=== PATIENT | female | born 1960 | race Caucasian/White ===

== ENCOUNTER → 2016-07-07 | Outpatient (CLI) | payer OTHER ==
--- NOTE | 2016-07-11 07:04 | MM ---
Reason for exam: screening (asymptomatic). Last mammogram was performed 1 year ago. History: Patient is postmenopausal. Physical Findings: A clinical breast exam by your physician is recommended on an annual basis and results should be correlated with mammographic findings. MG 3D Screening Mammo W/Cad Bilateral CC and MLO view(s) were taken. Prior study comparison: July 06, 2015, bilateral MG 3d screening mammo w/cad. May 15, 2014, bilateral MG screening mammo w CAD. The breast tissue is heterogeneously dense. This may lower the sensitivity of mammography. No significant changes when compared with prior studies. ASSESSMENT: Benign, BI-RAD 2 RECOMMENDATION: Routine screening mammogram of both breasts in 1 year.
== END | disposition home or self-care (01) ==
LOC: RADMAMWWP 13:11
PROVIDERS: ATTEND Family Medicine
DX: Z12.31 Encounter for screening mammogram for malignant neoplasm of breast (principal)
CPT/HCPCS: 77063; G0202

== ENCOUNTER 2016-07-13 08:04 | Day surgery (SDC) | payer OTHER ==
[2016-07-11 09:31] VITALS: BMI 25.7
--- NOTE | 2016-07-13 07:37 | P.GSHP ---
History of Present Illness H&P Date: 07/13/16 CHIEF COMPLAINT: Colon screen HISTORY OF PRESENT ILLNESS: The patient is a 56-year-old female who presents for colon screen. Lower endoscopy was offered for further evaluation and management. PAST MEDICAL HISTORY: Please see list. PAST SURGICAL HISTORY: Please see list. MEDICATIONS: Please see list. ALLERGIES: Please see list. SOCIAL HISTORY: No illicit drug use FAMILY HISTORY: No reports of Crohn disease or ulcerative colitis. REVIEW OF ORGAN SYSTEMS: CONSTITUTIONAL: No reports of fevers or chills. PHYSICAL EXAM: VITAL SIGNS: Stable GENERAL: Well-developed pleasant in no acute distress. HEENT: No scleral icterus. Extraocular movements grossly intact. Moist buccal mucosa. NECK: Supple without lymphadenopathy. CHEST: Unlabored respirations. Equal bilateral excursions. CARDIOVASCULAR: Regular rate and rhythm. Distal 2+ pulses. ABDOMEN: Soft, nontender, nondistended. MUSCULOSKELETAL: No clubbing, cyanosis, or edema. ASSESSMENT: 1. Colon screen. PLAN: 1. Recommend proceeding with a lower endoscopy Past Medical History Past Medical History: No Reported History Additional Past Medical History / Comment(s): Hx of migraine and insomnia. History of Any Multi-Drug Resistant Organisms: None Reported Past Surgical History: No Surgical Hx Reported Additional Past Surgical History / Comment(s): Hx cervical biopsy and 1 wisdom upper tooth removed. Past Anesthesia/Blood Transfusion Reactions: No Reported Reaction Past Psychological History: No Psychological Hx Reported Smoking Status: Never smoker Past Alcohol Use History: None Reported Past Drug Use History: None Reported - Past Family History Mother Family Medical History: Cancer Additional Family Medical History / Comment(s): Bone CA to leg. Medications and Allergies Home Medications Medication Instructions Recorded Confirmed Type Cholecalciferol [Vitamin D3] 2,000 unit PO DAILY 07/11/16 07/11/16 History Naproxen [Naprosyn] 500 mg PO Q12HR PRN 07/11/16 07/11/16 History Nortriptyline [Pamelor] 50 mg PO HS 07/11/16 07/11/16 History Zolpidem [Ambien] 10 mg PO HS PRN 07/11/16 07/11/16 History Allergies Allergy/AdvReac Type Severity Reaction Status Date / Time Penicillins Allergy Rash/Hives Verified 07/11/16 09:09
[~2016-07-13 08:04] MED LIST: LACTATED RINGERS 1,000 ML IV SCH; LIDOCAINE 1% 20 ML VIAL (10MG/ML) FOR IV START INTRADERMA PRN
[2016-07-13 08:19] VITALS: RESP 16; TEMP 97.9
[2016-07-13] MEDS ORDERED: PROPOFOL 10 MG/ML 20 ML VIAL IV ONE (08:55)
--- NOTE | 2016-07-13 09:14 | P.PCN ---
Date of Procedure: 07/13/16 Description of Procedure: PREOPERATIVE DIAGNOSIS: Colonoscopy screening. POSTOPERATIVE DIAGNOSIS: Colonoscopy screening. External hemorrhoids, grade 2. OPERATION: Colonoscopy to the ileocecal valve and appendiceal orifice. SURGEON: Rina Stewart MD. ANESTHESIA: MAC. INDICATIONS: The patient is a 58-year-old female who presents for first colonoscopy screening. Benefits and risks were described and informed consent was obtained. DESCRIPTION OF PROCEDURE: The patient had undergone Gatorade, MiraLAX and Dulcolax prep. She had been brought into the operating room and laid in the left lateral decubitus position. After adequate intravenous sedation, the rectum was examined with 2% lidocaine jelly. No external hemorrhoids were encountered. The rectal tone was within normal limits. No lesions were palpated in the rectal vault. An Olympus colonoscope was advanced until the ileocecal valve and appendiceal orifice were clearly viewed. The prep was excellent with clear visualization of the mucosal folds. The scope was removed with visualization of each mucosal fold. No scattered diverticulosis was encountered. No colonic polyps were found. No evidence of focal colitis was found. Retroflexion of the scope demonstrated grade 1 internal hemorrhoids without active bleeding or inflammation. The colon was desufflated. The patient had tolerated the procedure well. Withdrawal time was over 6 minutes. FINDINGS: Internal hemorrhoids, grade 1 External prolapsed hemorrhoids, grade 2. No arteriovenous malformations. No diverticulosis. No adenomatous polyps. No focal colitis. RECOMMENDATIONS: Lower endoscopy every 10 years per screening guidelines; however down to 5 years with family history of colon polyps or cancer.
[2016-07-13 09:33] VITALS: BP 129/82; PULSE 80
== END 2016-07-13 09:49 | disposition home or self-care (01) ==
LOC: ORWHC2ENDO 08:04
PROVIDERS: ATTEND Surgery Plastic and Reconstructive Surgery
DX: Z12.11 Encounter for screening for malignant neoplasm of colon (principal); K64.0 First degree hemorrhoids; Z79.899 Other long term (current) drug therapy; Z88.0 Allergy status to penicillin
CPT/HCPCS: J2704; G0121

== ENCOUNTER → 2017-07-25 | Outpatient (CLI) | payer OTHER ==
--- NOTE | 2017-07-26 11:51 | MM ---
Reason for exam: screening (asymptomatic). Last mammogram was performed 1 year and 1 month ago. History: Patient is postmenopausal. Physical Findings: A clinical breast exam by your physician is recommended on an annual basis and results should be correlated with mammographic findings. MG 3D Screening Mammo W/Cad Bilateral CC and MLO view(s) were taken. Prior study comparison: July 07, 2016, bilateral MG 3d screening mammo w/cad. July 06, 2015, bilateral MG 3d screening mammo w/cad. There are scattered fibroglandular densities. Stable benign calcifications. There is no discrete abnormality. New nodule upper outer left breast 6.7cm from nipple. ASSESSMENT: Incomplete: need additional imaging evaluation, BI-RAD 0 RECOMMENDATION: Special view mammogram and ultrasound of the left breast. [facility] will attempt to contact patient to return for supplemental views and ultrasound.
== END | disposition home or self-care (01) ==
LOC: RADMAMWWP 14:46
PROVIDERS: ATTEND Family Medicine
DX: Z12.31 Encounter for screening mammogram for malignant neoplasm of breast (principal)
CPT/HCPCS: 77063; 77067

== ENCOUNTER → 2017-08-07 | Outpatient (CLI) | payer OTHER ==
--- NOTE | 2017-08-07 14:01 | MM ---
Reason for exam: additional evaluation requested from abnormal screening. Last mammogram was performed less than 1 month ago. History: Patient is postmenopausal. Physical Findings: Nurse did not find any significant physical abnormalities on exam. MG 3D Work Up W/Cad LT Spot compression CC, spot compression MLO, ML, and LM view(s) were taken of the left breast. Prior study comparison: July 25, 2017, bilateral MG 3d screening mammo w/cad. July 07, 2016, bilateral MG 3d screening mammo w/cad. There are scattered fibroglandular densities. No suspicious abnormality. The previously seen posterior depth left breast mass demonstrates a clear fatty hilum on 3D views in the upper outer quadrant compatible with a benign lymph node. These results were verbally communicated with the patient and result sheet given to the patient on 08/07/17. ASSESSMENT: Benign, BI-RAD 2 RECOMMENDATION: Return to routine screening mammogram schedule for both breasts.
== END | disposition home or self-care (01) ==
LOC: RADMAMWWP 13:01
PROVIDERS: ATTEND Family Medicine
DX: R92.8 Other abnormal and inconclusive findings on diagnostic imaging of breast (principal)
CPT/HCPCS: 77065; G0279

== ENCOUNTER → 2018-08-23 | Outpatient (CLI) | payer OTHER ==
--- NOTE | 2018-08-23 13:01 | EST ---
EXERCISE STRESS DATE OF SERVICE: 08/23/2018 AGE: 58 SEX: Female HT: 65 WT: 153 PROTOCOL: Angel STAGE: III DURATION OF EXERCISE: 8 minutes 30 seconds HEART RATE REST: 88 BLOOD PRESSURE REST: 144/92 MAXIMUM HEART RATE ACHIEVED: 137 MAXIMUM BLOOD PRESSURE: 225/91 85% MPHR: 137 100% MPHR: 161 METS: 10.1 INDICATIONS: Chest pain. CLINICAL INFORMATION: Patient was exercised for a total period of 8 minutes and 30 seconds. The peak heart rate of 137 was achieved. Maximum blood pressure of 225/91 mmHg was noted. Resting EKG shows normal sinus rhythm with normal PA interval and QRS duration and normal ST-T waves. No ST-segment depression suggestive of ischemia is noted. The patient did not complain of any chest pain during the test. FINAL IMPRESSION: 1. This exercise test is not suggestive of ischemia. 2. Patient's exercise tolerance is normal. 3. No dysrhythmias are noted. MMODL / IJN: [id number] /
== END | disposition home or self-care (01) ==
LOC: RADNMMAIN 10:38
PROVIDERS: ATTEND Family Medicine
DX: R07.89 Other chest pain (principal)
CPT/HCPCS: 93017

== ENCOUNTER → 2018-08-30 | Outpatient (CLI) | payer OTHER ==
--- NOTE | 2018-08-31 12:32 | MM ---
Reason for exam: screening (asymptomatic). Last mammogram was performed 1 year and 1 month ago. History: Patient is postmenopausal. Physical Findings: A clinical breast exam by your physician is recommended on an annual basis and results should be correlated with mammographic findings. MG Screening Mammo w CAD Bilateral CC and MLO view(s) were taken. XCCM view(s) were taken of the right breast. Prior study comparison: August 07, 2017, left breast MG 3d work up w/cad LT. July 25, 2017, bilateral MG 3d screening mammo w/cad. The breast tissue is heterogeneously dense. This may lower the sensitivity of mammography. No significant changes when compared with prior studies. ASSESSMENT: Benign, BI-RAD 2 RECOMMENDATION: Routine screening mammogram of both breasts in 1 year.
== END | disposition home or self-care (01) ==
LOC: RADMAMWWP 13:07
PROVIDERS: ATTEND Family Medicine
DX: Z12.31 Encounter for screening mammogram for malignant neoplasm of breast (principal)
CPT/HCPCS: 77067

== ENCOUNTER → 2019-10-31 | Outpatient (CLI) | payer OTHER ==
--- NOTE | 2019-11-05 10:11 | MM ---
Reason for exam: screening (asymptomatic). Last mammogram was performed 1 year and 2 months ago. History: Patient is postmenopausal and has history of endometrial cancer at age 41. Physical Findings: A clinical breast exam by your physician is recommended on an annual basis and results should be correlated with mammographic findings. MG Screening Mammo w CAD Bilateral CC and MLO view(s) were taken. Prior study comparison: August 30, 2018, bilateral MG screening mammo w CAD. August 07, 2017, left breast MG 3d work up w/cad LT. There is a small benign appearing round calcifications in the left breast. There is no discrete abnormality. ASSESSMENT: Benign, BI-RAD 2 RECOMMENDATION: Routine screening mammogram of both breasts in 1 year.
== END | disposition home or self-care (01) ==
LOC: RADMAMWWP 15:16
PROVIDERS: ATTEND Family Medicine
DX: Z12.31 Encounter for screening mammogram for malignant neoplasm of breast (principal)
CPT/HCPCS: 77067

== ENCOUNTER 2020-04-03 11:46 | Observation (INO) | payer OTHER ==
[2020-04-03] MEDS ORDERED: SODIUM CHLORIDE 0.9% 500 ML 500 ML IV STA (13:08)
[2020-04-03] MEDS ORDERED: ASPIRIN 81 MG PO STA (13:09)
[2020-04-03 13:25] LABS: Basophils # (A) 0.1 k/uL (0-0.2); Basophils % (A) 1 %; Eosinophils # (A) 0.2 k/uL (0-0.7); Eosinophils % (A) 3 %; HCT 42.6 % (34.0-46.0); HGB 13.9 gm/dL (11.4-16.0); Lymphocytes # (A) 2.3 k/uL (1.0-4.8); Lymphocytes % (A) 40 %; MCH 31.2 pg (25.0-35.0); MCHC 32.6 g/dL (31.0-37.0); MCV 95.7 fL (80.0-100.0); Mean Platelet Volume 7.2; Monocytes # (A) 0.4 k/uL (0-1.0); Monocytes % (A) 6 %; Neutrophils # (A) 2.8 k/uL (1.3-7.7); Neutrophils % (A) 48 %; Platelet Count 286 k/uL (150-450); RBC 4.45 m/uL (3.80-5.40); RDW 13.2 % (11.5-15.5); WBC 5.8 k/uL (3.8-10.6)
[2020-04-03 13:36] LABS: ALT 44 U/L (4-34); AST 31 U/L (14-36); African American GFR (CKD) >90 (>60 ml/min/1.73 sqM); Albumin 5.2 g/dL (3.5-5.0); Alkaline Phosphatase 80 U/L (38-126); Anion Gap 8 mmol/L; Blood Urea Nitrogen 13 mg/dL (7-17); Calcium 10.1 mg/dL (8.4-10.2); Carbon Dioxide 27 mmol/L (22-30); Chloride 106 mmol/L (98-107); Glucose 84 mg/dL (74-99); Magnesium 2.1 mg/dL (1.6-2.3); Non-African American GFR(CKD) >90 (>60 ml/min/1.73 sqM); Sodium 141 mmol/L (137-145); Total Bilirubin 0.4 mg/dL (0.2-1.3); Total Protein 8.1 g/dL (6.3-8.2)
[2020-04-03 13:40] LABS: Partial Thromboplastin Time 24.5 sec (22.0-30.0)
--- NOTE | 2020-04-03 14:17 | CT ---
EXAMINATION TYPE: CT brain wo con DATE OF EXAM: 04/03/2020 COMPARISON: None INDICATION: headache DLP: 1063.4 mGycm, Automated exposure control for dose reduction was used. CONTRAST: None CT of the brain is performed utilizing 3 mm thick sections through the posterior fossa and 3 mm thick sections through the remaining calvarium. Study is performed within 24 hours of arrival to the hosp [facility]. No abnormal hyperdensity is present to suggest an acute intracranial hemorrhage. No mass lesion is evident. No acute infarcts are evident. Ventricles and sulci are appropriate for the patient age. Paranasal sinuses and mastoid air cells within the [id number] are clear. IMPRESSIONS: 1. Normal CT Brain
--- NOTE | 2020-04-03 14:32 | XR ---
EXAMINATION TYPE: XR chest 2V DATE OF EXAM: 04/03/2020 COMPARISON: None INDICATION: Chest pain TECHNIQUE: Frontal and lateral views of the chest are obtained. FINDINGS: The heart size is normal. The pulmonary vasculature is normal. The lungs are clear. IMPRESSION: 1. No acute pulmonary process.
[2020-04-03] MEDS ORDERED: NITROGLYCERIN SL TABS 0.4 MG TAB SUBLINGUAL PRN (14:45)
--- NOTE | 2020-04-03 14:46 | ED ---
General Adult HPI - General Chief complaint: Chest Pain Stated complaint: sent by PCP Time Seen by Provider: 04/03/20 13:02 Source: patient, RN notes reviewed, old records reviewed Mode of arrival: ambulatory Limitations: no limitations - History of Present Illness Initial comments: 59-year-old female patient sent in by Dr. Tellez for evaluation. Patient reports that she has been having a daily headache last 2 weeks. Patient reports that it is behind her eyes. Patient also reports that she has been having some substernal burning that feels like heartburn for the last 2 days. Patient was seen by Dr. Tellez today who wanted her to be admitted for serial troponins. Patient reports that she had a stress test a couple of years ago which was reportedly negative. Denies any other acute complaints. Systemic: Pt denies fatigue, fever/chills, rash. Pt denies weakness, night sweats, weight loss. Neuro: Pt denies visual disturbances, syncope or pre-syncope. HEENT: Pt denies ocular discharge or irritation, otalgia, rhinorrhea, phary ngitis or notable lymphadenopathy. Cardiopulmonary: Pt denies chest pain, SOB, heart palpitations, dyspnea on exertion. Abdominal/GI: Pt denies abdominal pain, n/v/d. : Pt denies dysuria, burning w/ urination, frequency/urgency. Denies new onset urinary or bowel incontinence. MSK: Pt denies myalgia, loss of strength or function in extremities. Neuro: Pt denies new onset weakness, paresthesias. - Related Data Home Medications Medication Instructions Recorded Confirmed Cholecalciferol [Vitamin D3] 2,000 unit PO DAILY 07/11/16 07/13/16 Naproxen [Naprosyn] 500 mg PO Q12HR PRN 07/11/16 07/11/16 Nortriptyline [Pamelor] 50 mg PO HS 07/11/16 07/13/16 Zolpidem [Ambien] 10 mg PO HS PRN 07/11/16 07/13/16 Allergies Allergy/AdvReac Type Severity Reaction Status Date / Time Penicillins Allergy Rash/Hives Verified 04/03/20 12:41 Review of Systems ROS Statement: Those systems with pertinent positive or pertinent negative responses have been documented in the HPI. ROS Other: All systems not noted in ROS Statement are negative. Past Medical History Past Medical History: Hypertension History of Any Multi-Drug Resistant Organisms: None Reported Past Surgical History: No Surgical Hx Reported Past Psychological History: No Psychological Hx Reported Smoking Status: Never smoker Past Alcohol Use History: Rare Past Drug Use History: None Reported General Exam - General Exam Comments Initial Comments: Constitutional: NAD, AOX3, Pt has pleasant affect. HEENT: NC/AT, trachea midline, neck supple, no lymphadenopathy. External ears appear normal, without discharge. Mucous membranes moist. Eyes PERRLA, EOM intact. There is no scleral icterus. No pallor noted. Cardiopulmonary: RRR, no murmurs, rubs or gallops, no JVD noted. Lungs CTAB in anterior and posterior malone. No peripheral edema. Abdominal exam: Abdomen soft and non-distended. Abdomen non-tender to palpation in all 4 quadrants. Bowel sounds active in LLQ. No hepatosplenomegaly. No ecchymosis Neuro: CN II-XII intact. No nuchal rigidity. No raccon eyes, no arriaga sign, no hemotympanum. No cervical spinal tenderness. MSK: No posterior calf tenderness bilaterally, homans sign negative bilaterally. Posterior tibialis and radial pulse +2 bilaterally. Sensation intact in upper and lower extremities. Full active ROM in upper and lower extremities, 5/5 stregnth. Limitations: no limitations Course Vital Signs 04/03/20 04/03/20 04/03/20 12:38 13:04 14:40 Temperature 97.7 F Pulse Rate 79 74 Respiratory 20 18 18 Rate Blood Pressure 166/87 170/87 O2 Sat by Pulse 96 97 Oximetry Medical Decision Making - Medical Decision Making 59-year-old female patient sent in by Dr. Tellez for evaluation. Patient rep orts that she has been having a daily headache last 2 weeks. Patient reports that it is behind her eyes. Patient also reports that she has been having some substernal burning that feels like heartburn for the last 2 days. Patient was seen by Dr. Tellez today who wanted her to be admitted for serial troponins. Patient reports that she had a stress test a couple of years ago which was reportedly negative. Denies any other acute complaints. Vital signs are stable, afebrile. Physical exam is negative for acute pathology. Laboratory investigations are unremarkable. CT brain negative for acute process. Chest x- ray negative for acute process. Troponin negative. Patient was admitted for she'll troponins and cardiology evaluation. Case discussed with Dr. Donovan. - Lab Data Result diagrams: 04/03/20 13:15 04/03/20 13:15 Lab Results 04/03/20 04/03/20 04/03/20 Range/Units 13:15 13:15 13:15 WBC 5.8 (3.8-10.6) k/uL RBC 4.45 (3.80-5.40) m/uL Hgb 13.9 (11.4-16.0) gm/dL Hct 42.6 (34.0-46.0) % MCV 95.7 (80.0-100.0) fL MCH 31.2 (25.0-35.0) pg MCHC 32.6 (31.0-37.0) g/dL RDW 13.2 (11.5-15.5) % Plt Count 286 (150-450) k/uL Neutrophils % 48 % Lymphocytes % 40 % Monocytes % 6 % Eosinophils % 3 % Basophils % 1 % Neutrophils # 2.8 (1.3-7.7) k/uL Lymphocytes # 2.3 (1.0-4.8) k/uL Monocytes # 0.4 (0-1.0) k/uL Eosinophils # 0.2 (0-0.7) k/uL Basophils # 0.1 (0-0.2) k/uL PT 10.0 (9.0-12.0) sec INR 1.0 (<1.2) APTT 24.5 (22.0-30.0) sec Sodium 141 (137-145) mmol/L Potassium 4.0 (3.5-5.1) mmol/L Chloride 106 (98-107) mmol/L Carbon Dioxide 27 (22-30) mmol/L Anion Gap 8 mmol/L BUN 13 (7-17) mg/dL Creatinine 0.52 (0.52-1.04) mg/dL Est GFR (CKD-EPI)AfAm >90 (>60 ml/min/1.73 sqM) Est GFR (CKD-EPI)NonAf >90 (>60 ml/min/1.73 sqM) Glucose 84 (74-99) mg/dL Calcium 10.1 (8.4-10.2) mg/dL Magnesium 2.1 (1.6-2.3) mg/dL Total Bilirubin 0.4 (0.2-1.3) mg/dL AST 31 (14-36) U/L ALT 44 H (4-34) U/L Alkaline Phosphatase 80 (38-126) U/L Troponin I (0.000-0.034) ng/mL Total Protein 8.1 (6.3-8.2) g/dL Albumin 5.2 H (3.5-5.0) g/dL 04/03/20 Range/Units 13:15 WBC (3.8-10.6) k/uL RBC (3.80-5.40) m/uL Hgb (11.4-16.0) gm/dL Hct (34.0-46.0) % MCV (80.0-100.0) fL MCH (25.0-35.0) pg MCHC (31.0-37.0) g/dL RDW (11.5-15.5) % Plt Count (150-450) k/uL Neutrophils % % Lymphocytes % % Monocytes % % Eosinophils % % Basophils % % Neutrophils # (1.3-7.7) k/uL Lymphocytes # (1.0-4.8) k/uL Monocytes # (0-1.0) k/uL Eosinophils # (0-0.7) k/uL Basophils # (0-0.2) k/uL PT (9.0-12.0) sec INR (<1.2) APTT (22.0-30.0) sec Sodium (137-145) mmol/L Potassium (3.5-5.1) mmol/L Chloride (98-107) mmol/L Carbon Dioxide (22-30) mmol/L Anion Gap mmol/L BUN (7-17) mg/dL Creatinine (0.52-1.04) mg/dL Est GFR (CKD-EPI)AfAm (>60 ml/min/1.73 sqM) Est GFR (CKD-EPI)NonAf (>60 ml/min/1.73 sqM) Glucose (74-99) mg/dL Calcium (8.4-10.2) mg/dL Magnesium (1.6-2.3) mg/dL Total Bilirubin (0.2-1.3) mg/dL AST (14-36) U/L ALT (4-34) U/L Alkaline Phosphatase (38-126) U/L Troponin I <0.012 (0.000-0.034) ng/mL Total Protein (6.3-8.2) g/dL Albumin (3.5-5.0) g/dL - EKG Data -: EKG Interpreted by Me (and Dr. Donovan ) EKG Comments: Ventricular rate 69, DC interval 106, QRS 104, QT/QTc 444/475. possible inferior infarct age undetermined. No concern for acute ischemia at this time. Disposition Clinical Impression: Chest pain, Headache Disposition: ADMITTED IP TO THIS HOSP Condition: Serious Is patient prescribed a controlled substance at d/c from ED?: No Referrals: Andrew Tellez DO [Primary Care Provider] - 1-2 days
[2020-04-03] MEDS ORDERED: ZOLPIDEM 5 MG TAB PO SCH (21:00)
[2020-04-03] MEDS ORDERED: cloNIDine HCL 0.1 MG TAB PO PRN (21:01)
[2020-04-03] MEDS ORDERED: ALPRAZolam 0.25 MG TAB PO PRN (21:01)
[2020-04-03] MEDS ORDERED: TEMAZEPAM 15 MG CAP PO PRN (21:01)
[2020-04-03 22:22] LABS: Amylase 83 U/L (30-110); Lipase 157 U/L (23-300)
[2020-04-03] MEDS: Acetaminophen-Codeine 300-30mg TAB PO PRN (22:35)
[2020-04-03] MEDS: CLARITHROMYCIN 500 MG TAB PO SCH (22:35)
[2020-04-03] MEDS: cloNIDine HCL 0.1 MG TAB PO SCH (22:35)
[2020-04-03] MEDS: EZETIMIBE 10 MG TAB PO SCH (22:36)
[2020-04-03 23:05] LABS: Appearance,Urine Clear (Clear); Bilirubin,Urine Negative (Negative); Blood,Urine Negative (Negative); Color,Urine Light Yellow; Glucose,Urine (UA) Negative (Negative); Ketones,Urine Negative (Negative); Leukocyte Esterase,Urine Trace (Negative); Mucus,Urine Rare /hpf; Nitrite,Urine Negative (Negative); PH, Urine 7.5 (5.0-8.0); Protein,Urine Negative (Negative); RBC,Urine 1 /hpf (0-5); Specific Gravity,Urine 1.007 (1.001-1.035); Squamous Epithelial Cell,Urine <1 /hpf (0-4); Urobilinogen,Urine <2.0 mg/dL (<2.0); WBC,Urine 3 /hpf (0-5)
[2020-04-04 00:31] VITALS: RESP 16
[2020-04-04 07:40] LABS: Basophils % (A) 1 %; Eosinophils # (A) 0.2 k/uL (0-0.7); Eosinophils % (A) 4 %; HCT 42.8 % (34.0-46.0); Lymphocytes # (A) 1.8 k/uL (1.0-4.8); Lymphocytes % (A) 36 %; MCH 30.1 pg (25.0-35.0); MCHC 30.4 g/dL (31.0-37.0); MCV 99.1 fL (80.0-100.0); Mean Platelet Volume 7.2; Monocytes # (A) 0.3 k/uL (0-1.0); Monocytes % (A) 6 %; Neutrophils # (A) 2.5 k/uL (1.3-7.7); Neutrophils % (A) 50 %; Platelet Count 279 k/uL (150-450); RBC 4.32 m/uL (3.80-5.40); RDW 13.5 % (11.5-15.5)
--- NOTE | 2020-04-04 07:57 | HP ---
HISTORY AND PHYSICAL DATE OF SERVICE: 04/03/2020 CHIEF COMPLAINT: Hypertension and chest pain. HISTORY OF PRESENT ILLNESS: This 59-year-old woman with a past medical history of multiple medical problems including history of hyperlipidemia, hypertension, being followed by Dr. Andrew Tellez in the outpatient setting, was having a headache for the last several days. Patient also had anterior chest burning also. The patient was evaluated by the primary care physician. Subsequently, patient was sent to [facility] for further evaluation and treatment. Headache was present for almost 2 weeks, bifrontal in character. Blood pressure is elevated. The most elevated blood pressure was 194/102, according to her. The patient was admitted and a cardiology evaluation is in progress. There is no history of fevers, rigors, chills. No headache, loss of consciousness, seizures. After the admission EKG, chest x-ray, CT scan of the brain was within normal limits except some nonspecific ST-T changes in the EKG. PAST MEDICAL HISTORY: History hypertension, hyperlipidemia. MEDICATIONS: Prior to admission, Ambien 10 mg q.h.s., Catapres 0.1 mg q.h.s., Zetia 10 mg daily, Biaxin 500 mg p.o. b.i.d. ALLERGIES: ASPIRIN, PENICILLIN. FAMILY HISTORY: No history of heart disease or strokes in the family. SOCIAL HISTORY: Patient is a set up mechanic stamping machines. No history of smoking. Occasional alcohol intake. REVIEW OF SYSTEMS: ENT: As mentioned earlier. CARDIOVASCULAR: As mentioned earlier. RESPIRATORY: No cough. GI: As mentioned earlier. : No dysuria. NERVOUS SYSTEM: No numbness or weakness. ALLERGY/IMMUNOLOGY: No asthma or hayfever. MUSCULOSKELETAL: As mentioned earlier. HEMATOLOGY: No history of anemia. ENDOCRINE: No history of diabetes or hypothyroidism. CONSTITUTIONAL: As mentioned earlier. DERMATOLOGY: Negative. RHEUMATOLOGY: Negative. PSYCHIATRY: As mentioned earlier. PHYSICAL EXAM: GENERAL: Patient is alert and oriented times three. VITAL SIGNS: Pulse 74, blood pressure 170/87, respirations 18, temperature 97.7, pulse ox 97% on room air HEENT: Conjunctivae normal. Oral mucosa moist. NECK: No jugular venous distention. No carotid bruits. No lymph node enlargement. RESPIRATORY: Breath sounds diminished at the bases. No rhonchi, no crackles. HEART: S1 and S2, muffled. ABDOMEN: Soft, no tenderness. No masses palpable. EXTREMITIES: No edema, no swelling. NERVOUS: Higher functions as mentioned earlier. Moves all four limbs. No focal motor or sensory deficits. LYMPHATICS: No lymph nodes palpable in the neck or axillae. SKIN: No rashes. JOINTS: No active deforming arthropathy. LABS: CBC within normal limits and ALT is 44. Albumin is 5.2. ASSESSMENT: 1. Chest pain for evaluation, rule out coronary artery disease, possible gastroesophageal reflux disease. 2. Headache, possibly secondary to hypertension. 3. Accelerated hypertension with hypertensive urgency. 4. Increased ALT. 5. Hypertension. 6. Hyperlipidemia history. RECOMMENDATIONS AND DISCUSSION: This 59-year-old woman who presented with multiple complex medical issues, we will monitor the patient closely. Continue the current medications, symptomatic treatment. Otherwise, I would recommend increase the dose of clonidine and add Norvasc to the current regimen. Symptomatic treatment. Closely follow with Cardiology. Rule out myocardial infarction. The patient will require a stress test to rule out possible coronary artery disease. Further recommendations to follow. MMODL / IJN: [id number] /
[2020-04-04] MEDS: CLARITHROMYCIN 500 MG TAB PO SCH (08:07)
[2020-04-04] MEDS: cloNIDine HCL 0.1 MG TAB PO SCH ×2 (08:07→15:27)
[2020-04-04] MEDS: EZETIMIBE 10 MG TAB PO SCH (08:08)
[2020-04-04] MEDS: Acetaminophen-Codeine 300-30mg TAB PO PRN (08:17)
[2020-04-04 08:29] LABS: African American GFR (CKD) >90 (>60 ml/min/1.73 sqM); Anion Gap 4 mmol/L; Blood Urea Nitrogen 11 mg/dL (7-17); Calcium 9.7 mg/dL (8.4-10.2); Carbon Dioxide 30 mmol/L (22-30); Chloride 106 mmol/L (98-107); Cholesterol 249 mg/dL (<200); Glucose 101 mg/dL (74-99); HDL Cholesterol 66 mg/dL (40-60); LDL Cholesterol,Calculated 161 mg/dL (0-99); Non-African American GFR(CKD) >90 (>60 ml/min/1.73 sqM); Potassium 4.4 mmol/L (3.5-5.1); Sodium 140 mmol/L (137-145); Triglycerides 109 mg/dL (<150)
[2020-04-04] MEDS ORDERED: ASPIRIN 325 MG TAB PO SCH (09:00)
[2020-04-04] MEDS ORDERED: PANTOPRAZOLE 40 MG/10 ML VIAL IVP SCH (09:00)
[2020-04-04 15:26] VITALS: BP 133/78; PULSE 58; TEMP 98
--- NOTE | 2020-04-04 16:46 | DS ---
DISCHARGE SUMMARY DATE OF SERVICE: 04/04/2020 FINAL DIAGNOSES: 1. Chest pain myocardial infarction ruled out, possible gastroesophageal reflux disease. 2. Headache, possibly secondary to hypertension. 3. Accelerated hypertension with hypertensive urgency. 4. Increased ALT. 5. Hypertension. 6. History of hyperlipidemia. DISCHARGE DISPOSITION: The patient will be discharged in stable condition with guarded prognosis. HISTORY OF PRESENT ILLNESS: This 59-year-old woman with a past medical history of multiple medical problems being followed Dr. Andrew Tellez in the outpatient setting was admitted with accelerated hypertension, systolic blood pressure up to 190, some chest discomfort as well as headache. Patient monitored closely. Cardiology saw the patient and recommended outpatient followup. Myocardial infarction was ruled out. Medications adjusted. Blood pressure improved significantly. Total cholesterol was 249, LDL was 161. Recommend outpatient followup and adjust dose of anti-hyperlipidemia medications otherwise. On exam, vitals are stable. Cardiovascular: S1, S2. Abdomen soft. Nervous system: No focal deficits. DISCHARGE ADVICE AND MEDICATIONS: 1. Diet is cardiac diet. 2. Activity limited until followup. 3. Follow up with Cardiology in the outpatient setting and have outpatient stress test. MEDICATIONS: 1. Ambien 10 mg q.h.s. 2. Biaxin 500 mg b.i.d. 3. Zetia 10 mg daily. 4. Catapres 0.1 t.i.d. 5. Norvasc 5 mg p.o. daily. Once again the patient discharged in stable condition with guarded prognosis. MMODL / IJN: [id number] /
--- NOTE | 2020-04-04 16:55 | P.CRDCN ---
History of Present Illness Consult date: 04/04/20 History of present illness: This is a 59-year-old female with history of hypertension, hyperlipidemia, being followed by Dr. Tellez as an outpatient. Patient was seen by primary care physician because of complaints of headache and also elevated blood pressure. In addition she was complaining of some burning pain in the precordial area. In view of the symptoms patient was admitted to the hospital. Patient had a computed tomography scan of the brain which was within normal limits. Her EKGs were normal and troponins are normal. Patient was treated with higher dose of clonidine with control of her blood pressure. Patient seemed to be stable today. Echo Cardigan showed normal LV function without any segmental wall motion defects. There is moderate concentric left ventricle hypertrophy. Patient is being discharged home on maximum medical therapy. Follow-up in the office in one week. Outpatient stress test to be considered to rule out underlying ischemic heart disease. Patient also may be considered for treatment for hypercholesterolemia. Patient has been taking Zetia before. Review of Systems As per the chart Past Medical History Past Medical History: Hyperlipidemia, Hypertension History of Any Multi-Drug Resistant Organisms: None Reported Past Surgical History: No Surgical Hx Reported Past Anesthesia/Blood Transfusion Reactions: No Reported Reaction Past Psychological History: No Psychological Hx Reported Smoking Status: Never smoker Past Alcohol Use History: Rare Past Drug Use History: None Reported Medications and Allergies Home Medications Medication Instructions Recorded Confirmed Type Clarithromycin [Biaxin] 500 mg PO BID 04/03/20 04/03/20 History Ezetimibe [Zetia] 10 mg PO DAILY 04/03/20 04/03/20 History Zolpidem [Ambien] 10 mg PO HS 04/03/20 04/03/20 History amLODIPine [Norvasc] 5 mg PO DAILY #30 tab 04/04/20 Rx cloNIDine HCL [Catapres] 0.1 mg PO TID #90 tab 04/04/20 Rx Allergies Allergy/AdvReac Type Severity Reaction Status Date / Time Penicillins Allergy Rash/Hives Verified 04/03/20 15:34 Physical Exam Vitals: Vital Signs Temp Pulse Resp BP Pulse Ox 04/04/20 15:26 98.0 F 58 L 16 133/78 97 04/04/20 15:00 58 L 16 04/04/20 09:00 72 16 04/04/20 08:05 97.6 F 72 16 136/83 94 L 04/04/20 04:52 97.9 F 66 16 138/75 96 04/03/20 19:45 97.7 F 72 16 158/82 98 Intake and Output 04/04/20 04/04/20 04/04/20 06:59 14:59 22:59 Intake Total 600 Balance 600 Intake: Oral 600 Other: Voiding Method Toilet Toilet Toilet # Voids 1 4 GENERAL EXAM: Patient is alert and oriented and doesn't appear to be in any acute distress HEENT: Normocephalic. Normal reaction of pupils, equal size, normal range of extraocular motion. No erythema or exudates in the throat. NECK: No masses, no nuchal rigidity. CHEST: No chest wall deformity. LUNGS: Equal air entry with no crackles or wheeze. HEART: S1 and S2 normal with no audible mumurs or gallops. Regular rhythm, femorals equal on both sides.. ABDOMEN: No hepatosplenomegaly, normal bowel sounds, no guarding or rigidity. SKIN: No rashes CENTRAL NERVOUS SYSTEM: No focal deficits. EXTREMITIES: No cyanosis, clubbing or edema. Results 04/04/20 07:03 04/04/20 07:03 Cardiac Enzymes 04/03/20 04/03/20 Range/Units 16:00 19:33 Troponin I <0.012 <0.012 (0.000-0.034) ng/mL Lipids 04/04/20 Range/Units 07:03 Triglycerides 109 (<150) mg/dL Cholesterol 249 H (<200) mg/dL HDL Cholesterol 66 H (40-60) mg/dL CBC 04/04/20 Range/Units 07:03 WBC 5.0 (3.8-10.6) k/uL RBC 4.32 (3.80-5.40) m/uL Hgb 13.0 (11.4-16.0) gm/dL Hct 42.8 (34.0-46.0) % Plt Count 279 (150-450) k/uL Comprehensive Metabolic Panel 04/04/20 Range/Units 07:03 Sodium 140 (137-145) mmol/L Potassium 4.4 (3.5-5.1) mmol/L Chloride 106 (98-107) mmol/L Carbon Dioxide 30 (22-30) mmol/L BUN 11 (7-17) mg/dL Creatinine 0.60 (0.52-1.04) mg/dL Glucose 101 H (74-99) mg/dL Calcium 9.7 (8.4-10.2) mg/dL Current Medications Generic Name Dose Route Start Last Admin Trade Name Freq PRN Reason Stop Dose Admin Acetaminophen/Codeine Phosphate 1 each 04/03/20 22:28 04/04/20 08:17 Acetaminophen-Codeine 300-30mg Tab PO 1 each Q8HR PRN Administration Pain Alprazolam 0.25 mg 04/03/20 21:01 Alprazolam 0.25 Mg Tab PO TID PRN Anxiety Aspirin 325 mg 04/04/20 09:00 04/04/20 08:07 Aspirin 325 Mg Tab PO 325 mg DAILY ANGEL Administration Clarithromycin 500 mg 04/03/20 21:00 04/04/20 08:07 Clarithromycin 500 Mg Tab PO 500 mg BID ANGEL Administration Clonidine 0.1 mg 04/03/20 22:00 04/04/20 15:27 Clonidine Hcl 0.1 Mg Tab PO 0.1 mg TID ANGEL Administration Clonidine 0.1 mg 04/03/20 21:01 Clonidine Hcl 0.1 Mg Tab PO Q4HR PRN Hypertension Ezetimibe 10 mg 04/03/20 21:00 04/04/20 08:08 Ezetimibe 10 Mg Tab PO 10 mg DAILY ANGEL Administration Nitroglycerin 0.4 mg 04/03/20 14:45 Nitroglycerin Sl Tabs 0.4 Mg Tab SUBLINGUAL Q5M PRN Chest Pain Pantoprazole Sodium 40 mg 04/04/20 09:00 04/04/20 08:07 Pantoprazole 40 Mg/10 Ml Vial IVP 40 mg DAILY ANGEL Administration Temazepam 15 mg 04/03/20 21:01 Temazepam 15 Mg Cap PO HS PRN Insomnia Zolpidem Tartrate 10 mg 04/03/20 21:00 04/03/20 22:36 Zolpidem 5 Mg Tab PO Not Given HS ANGEL Intake and Output 04/04/20 04/04/20 04/04/20 06:59 14:59 22:59 Intake Total 600 Balance 600 Intake: Oral 600 Other: Voiding Method Toilet Toilet Toilet # Voids 1 4 04/04/20 07:03 04/04/20 07:03 EKG Interpretations (text) Sinus rhythm Assessment and Plan (1) Uncontrolled hypertension Current Visit: Yes Status: Acute Code(s): I10 - ESSENTIAL (PRIMARY) HYPERTENSION SNOMED Code(s): 55797353 (2) Chest pain Current Visit: Yes Status: Acute Code(s): R07.9 - CHEST PAIN, UNSPECIFIED SNOMED Code(s): 51206489 (3) Headache Current Visit: Yes Status: Acute Code(s): R51.9 - HEADACHE, UNSPECIFIED SNOMED Code(s): 04006354 Plan: Continue current medical therapy with high dose of clonidine. Increase activity. Echo shows normal LV function. Patient could be discharged home. Outpatient stress test to be considered
--- NOTE | 2020-04-09 20:31 | ECHOF ---
Referral Reason:cp MEASUREMENTS -------- HEIGHT: 165.1 cm WEIGHT: 63.5 kg BP: IVSd: 1.4 cm (0.6 - 1.1) LVIDd: 3.3 cm (3.9 - 5.3) LVPWd: 1.7 cm (0.6 - 1.1) IVSs: 1.7 cm LVIDs: 2.1 cm LVPWs: 1.8 cm Ao Diam: 2.9 cm (2.0 - 3.7) LA Diam: 3.0 cm (2.7 - 3.8) AV Cusp: 2.0 cm (1.5 - 2.6) EPSS: 0.6 cm MV E Justo: 0.56 m/s MV DecT: 214 ms MV A Justo: 0.48 m/s MV E/A Ratio: 1.17 RAP: 5.00 mmHg RVSP: 10.57 mmHg MV EF SLOPE: 60.18 mm/s (70 - 150) MV EXCURSION: 13.19 mm (> 18.000) FINDINGS -------- This was a technically good study. The left ventricular size is normal. There is moderate concentric left ventricular hypertrophy. O verall left ventricular systolic function is normal with, an EF between 55 - 60 %. The diastolic fi lling pattern is normal for the age of the patient 10.21. The right ventricle is normal in size. The left atrial size is normal. Normal LA size by volume 22+/-6 ml/m2. The right atrial size is normal. The aortic valve is trileaflet and appears structurally normal. The mitral valve is normal. There is trace mitral regurgitation. The tricuspid valve appears structurally normal. Trace tricuspid regurgitation present. Right enoch tricular systolic pressure is normal at < 35 mmHg. There is no pulmonic regurgitation present. The aortic root size is normal. Normal inferior vena cava with normal inspiratory collapse consistent with estimated right atrial pre ssure of 5 mmHg. There is no pericardial effusion. CONCLUSIONS -------- 1. The left ventricular size is normal. 2. There is moderate concentric left ventricular hypertrophy. 3. Overall left ventricular systolic function is normal with, an EF between 55 - 60 %. 4. The diastolic filling pattern is normal for the age of the patient 10.21 5. There is trace mitral regurgitation. 6. Trace tricuspid regurgitation present. 7. There is no pericardial effusion. HEALTH SPECIALIST: Apple Andrea RDCS
== END 2020-04-04 16:55 ==
LOC: EC 11:46 → 3NCARDOBS 15:06
PROVIDERS: ADMIT Internal Medicine; ATTEND Internal Medicine
DX: R07.89 Other chest pain (principal); R07.2 Precordial pain; R12 Heartburn; E78.5 Hyperlipidemia, unspecified; I16.0 Hypertensive urgency; I11.9 Hypertensive heart disease without heart failure; R74.01 Elevation of levels of liver transaminase levels; Z79.899 Other long term (current) drug therapy; Z79.1 Long term (current) use of non-steroidal anti-inflammatories (NSAID); Z88.0 Allergy status to penicillin; Z88.6 Allergy status to analgesic agent
CPT/HCPCS: 93005 ×2; 96374; 99285; 36415; 93306; 80061; 80053; 80048; 82150; 83690; 83735; 84484; 85025 ×2; 85610; 85730; 81001; 71046; 70450; G0378 ×2; C9113

== ENCOUNTER → 2020-04-03 | Outpatient (CLI) | payer OTHER | END | disposition home or self-care (01) | LOC: LABWHC1 08:26 | PROVIDERS: ATTEND Family Medicine | DX: R03.0 Elevated blood-pressure reading, without diagnosis of hypertension (principal) | CPT/HCPCS: 36415; 93005 ==

== ENCOUNTER → 2020-12-03 | Outpatient (CLI) | payer OTHER ==
--- NOTE | 2020-12-07 14:41 | MM ---
Reason for exam: screening (asymptomatic). Last mammogram was performed 1 year and 1 month ago. History: Patient is postmenopausal and has history of endometrial cancer at age 41. Physical Findings: A clinical breast exam by your physician is recommended on an annual basis and results should be correlated with mammographic findings. MG Screening Mammo w CAD Bilateral CC and MLO view(s) were taken. Prior study comparison: October 31, 2019, bilateral MG screening mammo w CAD. August 30, 2018, bilateral MG screening mammo w CAD. There are scattered fibroglandular densities. No significant changes when compared with prior studies. ASSESSMENT: Benign, BI-RAD 2 RECOMMENDATION: Routine screening mammogram of both breasts in 1 year.
== END | disposition home or self-care (01) ==
LOC: RADMAMWWP 15:48
PROVIDERS: ATTEND Family Medicine
DX: Z12.31 Encounter for screening mammogram for malignant neoplasm of breast (principal); Z78.0 Asymptomatic menopausal state; Z85.42 Personal history of malignant neoplasm of other parts of uterus
CPT/HCPCS: 77067

== ENCOUNTER → 2021-11-22 | Outpatient (CLI) | payer OTHER ==
--- NOTE | 2021-11-23 10:02 | US ---
EXAMINATION TYPE: US pelvic complete DATE OF EXAM: 11/22/2021 COMPARISON: NONE CLINICAL HISTORY: 61-year-old female R10.32 LLQ PAIN. Pt states LLQ pain on palpation x few months, p t denies vaginal bleeding, not on HRT's TECHNIQUE: Transabdominal sonographic images of the pelvis were acquired. Date of LMP: age 52 FINDINGS: EXAM MEASUREMENTS: Uterus: 6.7 x 2.4 x 3.5 cm Endometrial Stripe: 0.3 cm Right Ovary: 1.3 x 1.2 x 1.2 cm Left Ovary: 1.2 x 1.2 x 1.4 cm 1. Uterus: Anteverted and otherwise wnl 2. Endometrium: wnl 3. Right Ovary: wnl 4. Left Ovary: wnl 5. Bilateral Adnexa: wnl 6. Posterior cul-de-sac: wnl IMPRESSION: Transabdominal scanning of the pelvis shows no discrete sonographic abnormality.
== END | disposition home or self-care (01) ==
LOC: RADUSWWP 16:08
PROVIDERS: ATTEND Family Medicine
DX: R10.32 Left lower quadrant pain (principal)
CPT/HCPCS: 76856

== ENCOUNTER → 2021-12-06 | Outpatient (CLI) | payer OTHER ==
--- NOTE | 2021-12-09 09:47 | MM ---
Reason for Exam: Screening (asymptomatic). Last screening mammogram was performed 12 month(s) ago. Patient History: Menarche at age 12. First Full-Term at age 23. Postmenopausal. Risk Values: Vanessa 5 year model risk: 1.4%. NCI Lifetime model risk: 6.2%. Prior Study Comparison: 08/30/2018 Bilateral Screening Mammogram, [facility]. 10/31/2019 Bilateral Screening Mammogram, [facility]. 12/03/2020 Bilateral Screening Mammogram, [facility]. Tissue Density: There are scattered fibroglandular densities. Findings: Analyzed By CAD. There is no suspicious group of microcalcifications or new suspicious mass in either breast. Overall Assessment: Negative, BI-RAD 1 Management: Screening Mammogram of both breasts in 1 year. A clinical breast exam by your physician is recommended on an annual basis and results should be correlated with mammographic findings. Electronically signed and approved by: Yifan Gutiérrez DO
== END | disposition home or self-care (01) ==
LOC: RADMAMWWP 13:16
PROVIDERS: ATTEND Family Medicine
DX: Z12.31 Encounter for screening mammogram for malignant neoplasm of breast (principal); Z78.0 Asymptomatic menopausal state
CPT/HCPCS: 77067

== ENCOUNTER → 2022-09-12 | Outpatient (CLI) | payer OTHER ==
[2022-09-12 16:08] LABS: Basophils # (A) 0.07 X 10*3/uL (0.00-0.10); Basophils % (A) 1.2 %; Eosinophils # (A) 0.13 X 10*3/uL (0.04-0.35); Eosinophils % (A) 2.2 %; HCT 42.6 % (37.2-46.3); HGB 13.5 g/dL (12.0-15.0); Immature Grans, Automated 0.3 %; Lymphocytes % (A) 39.6 %; MCH 30.3 pg (27.0-32.0); MCHC 31.7 g/dL (32.0-37.0); MCV 95.7 fL (80.0-97.0); Mean Platelet Volume 10.8 fL (9.5-12.2); Monocytes # (A) 0.41 X 10*3/uL (0.20-1.00); Monocytes % (A) 7.1 %; NRBC Per 100 WBC 0 /100 WBCS (0.0-0.0); Neutrophils # (A) 2.88 X 10*3/uL (1.80-7.70); Neutrophils % (A) 49.6 %; Platelet Count 285 X 10*3/uL (140-440); RBC 4.45 X 10*6/uL (4.10-5.20); RDW 13.3 % (11.5-14.5); WBC 5.81 X 10*3/uL (4.50-10.00)
[2022-09-12 18:48] LABS: Erythrocyte Sedimentation Rate 2 mm/Hr (0-30)
== END | disposition home or self-care (01) ==
LOC: LABWHC1 10:45
PROVIDERS: ATTEND Ophthalmology
DX: H35.81 Retinal edema (principal)
CPT/HCPCS: 36415; 83036; 85025; 85652

== ENCOUNTER → 2023-02-10 | Outpatient (CLI) | payer OTHER ==
--- NOTE | 2023-02-13 10:08 | MM ---
Reason for Exam: Screening (asymptomatic). Last mammogram was performed 1 year(s) and 2 month(s) ago. Patient History: Menarche at age 12. First Full-Term at age 23. Postmenopausal. Risk Values: Vanessa 5 year model risk: 1.4%. NCI Lifetime model risk: 6.0%. Prior Study Comparison: 10/31/2019 Bilateral Screening Mammogram, [facility]. 12/03/2020 Bilateral Screening Mammogram, [facility]. 12/06/2021 Bilateral MG screening mammo w CAD, [facility]. Tissue Density: The breast tissue is heterogeneously dense. This may lower the sensitivity of mammography. Findings: Analyzed By CAD. There is no suspicious group of microcalcifications or new suspicious mass in either breast. Overall Assessment: Benign, BI-RAD 2 Management: Screening Mammogram of both breasts in 1 year. . Patient should continue monthly self-breast exams. A clinical breast exam by your physician is recommended on an annual basis. This exam should not preclude additional follow-up of suspicious palpable abnormalities. Note on Vanessa scores and lifetime risk: 1. A Vanessa score greater than 3% is considered moderate risk. If this is the case, consider specialist referral to assess eligibility for a risk reducing agent. 2. If overall lifetime risk for the development of breast cancer is 20% or higher, the patient may qualify for future screening with alternating mammogram and breast MRI. Electronically signed and approved by: Luis Abbasi M.D. Radiologis
== END | disposition home or self-care (01) ==
LOC: RADMAMWWP 14:52
PROVIDERS: ATTEND Family Medicine
DX: Z12.31 Encounter for screening mammogram for malignant neoplasm of breast (principal); Z78.0 Asymptomatic menopausal state
CPT/HCPCS: 77067

== ENCOUNTER → 2023-08-02 | Outpatient (CLI) | payer OTHER ==
--- NOTE | 2023-08-02 17:37 | CA ---
Transthoracic Echo Report Name: Lisa Nichols Age: 63 Gender: F : 1960 Exam Date: 08/02/2023 13:12 Exam Location: [facility] Ht (in): 65 Wt (lb): 169 Ordering Physician: Andrew Tellez DO Attending/Referring Phys: [employer] Commissioner Brooke Treadwell RDCS Procedure CPT: Indications: R07.89 other chest pain Cardiac Hx: Technical Quality: Contrast 1: Total Dose (mL): Contrast 2: Total Dose (mL): MEASUREMENTS (Male / Female) Normal Values 2D ECHO LV Diastolic Diameter PLAX 4.8 cm 4.2 - 5.9 / 3.9 - 5.3 cm LV Systolic Diameter PLAX 3.3 cm IVS Diastolic Thickness 0.9 cm 0.6 - 1.0 / 0.6 - 0.9 cm LVPW Diastolic Thickness 0.8 cm 0.6 - 1.0 / 0.6 - 0.9 cm LV Relative Wall Thickness 0.4 LVOT Diameter 2.0 cm Aortic Root Diameter 3.0 cm LA Systolic Diameter LX 4.1 cm 3.0 - 4.0 / 2.7 - 3.8 cm LV Diastolic Volume MOD BP 69.4 cm??? 67 - 155 / 56 - 104 cm??? LV Systolic Volume MOD BP 23.2 cm??? 22 - 58 / 19 - 49 cm??? LV Ejection Fraction MOD BP 66.6 % >= 55 % LV Cardiac Index MOD BP 1510.6 cm???/min???m??? LV Diastolic Volume MOD 4C 76.8 cm??? LV Systolic Volume MOD 4C 17.0 cm??? LV Ejection Fraction MOD 4C 77.8 % LV Cardiac Index MOD 4C 1954.1 cm???/min???m??? LV Diastolic Length 4C 7.4 cm LV Systolic Length 4C 4.2 cm LV Diastolic Volume MOD 2C 64.0 cm??? LV Systolic Volume MOD 2C 23.6 cm??? LV Ejection Fraction MOD 2C 63.1 % LV Cardiac Index MOD 2C 1321.0 cm???/min???m??? LV Diastolic Length 2C 7.4 cm LV Systolic Length 2C 5.8 cm DOPPLER AV Peak Velocity 132.7 cm/s AV Peak Gradient 7.0 mmHg AV Mean Velocity 97.6 cm/s AV Mean Gradient 4.1 mmHg AV Velocity Time Integral 31.1 cm LVOT Peak Velocity 150.9 cm/s LVOT Peak Gradient 9.1 mmHg LVOT Velocity Time Integral 32.1 cm LVOT Stroke Volume 103.5 cm??? LVOT Stroke Volume Index 56.2 ml/m??? LVOT Cardiac Index 3385.2 cm???/min???m??? AV Area Cont Eq vti 3.3 cm??? AV Area Cont Eq pk 3.7 cm??? Mitral E Point Velocity 95.5 cm/s Mitral A Point Velocity 65.9 cm/s Mitral E to A Ratio 1.5 MV Deceleration Time 229.6 ms MV E' Velocity 8.1 cm/s Mitral E to MV E' Ratio 11.8 TR Peak Velocity 237.1 cm/s TR Peak Gradient 22.5 mmHg PV Peak Velocity 92.1 cm/s PV Peak Gradient 3.4 mmHg FINDINGS Left Ventricle Left ventricular ejection fraction is estimated at 55-60 %. Normal left ventricular systolic function with no obvious regional wall motion abnormalities. Right Ventricle Normal right ventricular size. Right ventricular systolic pressure estimated at 27.48 mmhg. Right Atrium Normal right atrial size. Left Atrium Mildly increased left atrial diameter. Mitral Valve Mild mitral regurgitation. Aortic Valve Aortic valve not well visualized. Tricuspid Valve Mild tricuspid regurgitation. Pulmonic Valve No pulmonic regurgitation. Pericardium No pericardial effusion. Aorta Normal size aortic root and proximal ascending aorta. CONCLUSIONS Normal LV systolic function Mild mitral regurgitation Previewed by: Dr. Micky Caicedo MD (Electronically Signed) Final Date: 02 August 2023 17:36
== END | disposition home or self-care (01) ==
LOC: RADECHMAIN 13:03
PROVIDERS: ATTEND Family Medicine
DX: I34.0 Nonrheumatic mitral (valve) insufficiency (principal); R07.89 Other chest pain
CPT/HCPCS: 93306

== ENCOUNTER → 2024-02-15 | Outpatient (CLI) | payer OTHER ==
--- NOTE | 2024-02-19 09:44 | MM ---
Reason for Exam: Screening (asymptomatic). Last screening mammogram was performed 12 month(s) ago. Patient History: Menarche at age 12. First Full-Term at age 23. Postmenopausal. Risk Values: Vanessa 5 year model risk: 1.4%. NCI Lifetime model risk: 5.8%. Prior Study Comparison: 12/03/2020 Bilateral Screening Mammogram, [facility]. 12/06/2021 Bilateral MG screening mammo w CAD, [facility]. 02/10/2023 Bilateral MG screening mammo w CAD, [facility]. Tissue Density: The breasts are heterogeneously dense, which may obscure small masses. Findings: Analyzed By CAD. There is no suspicious group of microcalcifications or new suspicious mass in either breast. Stable appearing lymph nodes in the axilla. Benign appearing calcifications. Overall Assessment: Benign, BI-RAD 2 Management: Screening Mammogram of both breasts in 1 year. . Patient should continue monthly self-breast exams. A clinical breast exam by your physician is recommended on an annual basis. This exam should not preclude additional follow-up of suspicious palpable abnormalities. Note on Vanessa scores and lifetime risk: 1. A Vanessa score greater than 3% is considered moderate risk. If this is the case, consider specialist referral to assess eligibility for a risk reducing agent. 2. If overall lifetime risk for the development of breast cancer is 20% or higher, the patient may qualify for future screening with alternating mammogram and breast MRI. [facility], , 02/19/2024 9:40 AM. Electronically signed and approved by: Rishi Gipson M.D. Radiologis
== END | disposition home or self-care (01) ==
LOC: RADMAMWWP 15:46
PROVIDERS: ATTEND Family Medicine
CPT/HCPCS: 77067